=== PATIENT | female | born 1960 ===

== ENCOUNTER → 2024-11-26 14:57 | Outpatient (REF) | payer MEDICARE, OTHER, SELFPAY | LOC: RAD 14:57 | PROVIDERS: ATTENDING PHYSICIAN Specialist; FAMILY PHYSICIAN Internal Medicine | DX: N95.0 Postmenopausal bleeding (principal) | CPT/HCPCS: 76830 ==

== ENCOUNTER → 2024-11-27 14:09 | Outpatient (REF) | payer MEDICARE, OTHER, SELFPAY | LOC: RAD 14:09 | PROVIDERS: ATTENDING PHYSICIAN Internal Medicine | DX: M79.89 Other specified soft tissue disorders (principal); M79.604 Pain in right leg; M79.605 Pain in left leg | CPT/HCPCS: 93970 ==